=== PATIENT | female | born 1950 | race Caucasian/White ===

== ENCOUNTER 2022-09-25 21:27 | Inpatient (IN) | payer MEDICARE, OTHER ==
[2022-09-25] MEDS ORDERED: Sodium Chloride 0.9% 10 ML Syringe FLUSH PRN (22:10)
[2022-09-25] MEDS: fentaNYL 100 MCG/2 ML SDV IVPUSH ONE (22:45)
[2022-09-25] MEDS ORDERED: fentaNYL 100 MCG/2 ML SDV ONE (22:49)
[2022-09-25] MEDS ORDERED: Sodium Chloride 0.9% 1,000 ML IV SCH (23:15)
[2022-09-25] MEDS ORDERED: Sodium Chloride 0.9% 30 ML IV ONE (23:29)
[2022-09-25] MEDS ORDERED: Iopamidol 612 MG/ML 100 ML Bottle IV SCH (23:30)
[2022-09-26] MEDS: Lactated Ringers 1,000 ML IV SCH ×2 (00:25→13:27)
[2022-09-26] MEDS: fentaNYL 100 MCG/2 ML SDV IVPUSH ONE (00:59)
[2022-09-26] MEDS ORDERED: Lidocaine 2% Jelly 5 ML Urojet MUCMEM ONE (01:00)
[2022-09-26] MEDS ORDERED: Lidocaine 2% Jelly 5 ML Urojet ONE (01:08)
[2022-09-26] MEDS ORDERED: Potassium Chloride Riders 10 MEQ in Premix Bag 1 BAG IV ONE ×2 (01:20→12:15)
[2022-09-26] MEDS ORDERED: Potassium Chloride Riders 50 ML ONE (02:04)
[2022-09-26] MEDS: Zolpidem 5 MG Tab PO SCH (21:20)
[2022-09-27] MEDS: Lactated Ringers 1,000 ML IV SCH (02:30)
[2022-09-27] MEDS: Zolpidem 5 MG Tab PO SCH (21:22)
[2022-09-28 13:49] VITALS: BP 141/77; PULSE 57
== END 2022-09-28 13:35 | disposition home or self-care (01) | DRG 388 ==
LOC: LB.ED 21:27 → UNDOADMIN 09-26 00:35 → LB.MS 09-26 00:35
PROVIDERS: ADMIT Surgery; ATTEND Surgery
PROC: 8E0ZXY6 Isolation (ICD-10-PCS; principal; 2022-09-25)
DX: K56.609 Unspecified intestinal obstruction, unspecified as to partial versus complete obstruction (principal); U07.1 COVID-19; K21.9 Gastro-esophageal reflux disease without esophagitis; Z87.81 Personal history of (healed) traumatic fracture; Z98.84 Bariatric surgery status
CPT/HCPCS: 36415; 43752; 71045; 74177; 80048; 80053; 81001; 83605; 83690; 85027; 93005; 93010; 96361; 96374; 99222; 99232; 99238; 99285-25; A9270-GY; J3010; J3480; J3490; J7030; J7120; U0002

== ENCOUNTER 2022-10-11 09:10 | Emergency (ER) | payer MEDICARE, OTHER ==
[2022-10-11] MEDS ORDERED: Diphtheria/Tetanus Toxoids,Adult (Td) 0.5 ML SDV IM ONE (09:51)
[2022-10-11] MEDS ORDERED: Lidocaine 1% with EPINEPHrine 1:100,000 20 ML MDV INJECT SCH (11:00)
[2022-10-11 11:12] VITALS: BP 170/86; PULSE 63
== END 2022-10-11 10:45 | disposition home or self-care (01) ==
LOC: LB.ED 09:10
DX: S61.451A Open bite of right hand, initial encounter (principal); Z23 Encounter for immunization; W54.0XXA Bitten by dog, initial encounter
CPT/HCPCS: 12002; 90471; 90714; 99283-25